=== PATIENT | male | born 1965 | race Two or more races ===

== ENCOUNTER → 2024-11-30 | Outpatient (CLI) | payer MEDICAID, SELFPAY ==
--- NOTE | 2024-11-30 10:57 | XR_ITS ---
Examination: Lumbar spine, 5 views Technique: Lumbar spine AP, lateral, coned lateral lower lumbar spine, bilateral obliques 5 views Exam date and time: November 30, 2024, 11:20 a.m., comparison May 11, 2023 INDICATIONS: Upper back injury and surgery 2022 patient fell 1 month ago with worsening back pain. FINDINGS: Moderate osteopenia. No acute lumbar fracture Mild lumbar spondylosis Mild disc narrowing posteriorly L5-S1 IMPRESSION: No acute lumbar fracture
== END | disposition home or self-care (01) ==
LOC: CDIM 10:42
DX: S29.9XXA Unspecified injury of thorax, initial encounter (principal); W19.XXXA Unspecified fall, initial encounter
CPT/HCPCS: 72110

== ENCOUNTER → 2024-12-07 | Outpatient (CLI) | payer MEDICAID, SELFPAY ==
--- NOTE | 2024-12-07 14:01 | XR_ITS ---
EXAMINATION: Cervical spine, 5 views Technique: Cervical spine AP, AP odontoid, lateral, bilateral obliques, 5 views Exam date and time: December 07, 2024, 1406 hours INDICATIONS: Neck pain years FINDINGS: Satisfactory alignment cervical vertebral bodies. No cervical fracture. Intact odontoid. Advanced degenerative disc disease C6-C7 with prominent posterior osteophyte formation and moderate to severe bilateral neuroforaminal stenosis at this level IMPRESSION: Advanced degenerative disc disease C6-C7 with moderate to severe bilateral neural foraminal stenosis
--- NOTE | 2024-12-07 14:01 | XR_ITS ---
EXAMINATION: Thoracic spine 3 views TECHNIQUE: AP lateral: Lateral upper dorsal spine 3 views Date and time: December 07, 2024, 1406 hours , Comparison June 17, 2023 FINDINGS: Moderate osteopenia. Satisfactory alignment thoracic vertebral bodies No thoracic fracture Mild diffuse thoracic disc narrowing IMPRESSION: Mild diffuse thoracic degenerative disc disease
== END | disposition home or self-care (01) ==
DX: M50.323 Other cervical disc degeneration at C6-C7 level (principal); M48.02 Spinal stenosis, cervical region; M51.34 Other intervertebral disc degeneration, thoracic region
CPT/HCPCS: 72050; 72072